=== PATIENT | female | born 1975 | race Caucasian/White ===

== ENCOUNTER → 2017-11-14 08:34 | Outpatient (CLI) | payer BC, SELFPAY ==
[2017-11-14 10:34] LABS: Basophils % 0.5 % (0.1-2.0); Eosinophils # 0.2 K/mm3 (0.0-0.4); Eosinophils % 3.5 % (0.1-12.0); Hematocrit 44.2 % (37.0-47.0); Hemoglobin 13.8 g/dL (12.2-16.2); Lymphocytes # 1.5 K/mm3 (0.7-4.5); Lymphocytes % 22.6 K/mm3 (10-50); Mean Corpuscular HGB Conc 31.3 g/dL (31.8-35.4); Mean Corpuscular Hemoglobin 29.6 pg (27.0-31.2); Mean Corpuscular Volume 94.5 fl (81-99); Mean Platelet Volume 7.5 fl (7.4-10.4); Monocytes # 0.4 K/mm3 (0.1-1.0); Monocytes % 5.6 % (1.7-9.3); Neutrophils # 4.4 K/mm3 (1.8-7.8); Neutrophils % 67.8 % (37.0-80.0); Platelet Count 308 K/mm3 (142-424); Red Blood Count 4.68 M/mm3 (4.20-5.40); Red Cell Distribution Width 13.7 % (11.5-17.5); White Blood Count 6.5 K/mm3 (4.8-10.8)
[2017-11-14 10:39] LABS: Alanine Aminotransferase 22 U/L (12-78); Albumin Level 3.6 gm/dL (3.4-5.0); Alkaline Phosphatase 85 U/L (46-116); Anion Gap 12.5 mEq/L (5-15); Aspartate Amino Transferase 18 U/L (15-37); Bilirubin,Total 0.3 mg/dL (0.2-1.0); Blood Urea Nitrogen 21 mg/dL (7-18); Calcium 9.1 mg/dL (8.5-10.1); Carbon Dioxide 29 mmol/L (21.0-32.0); Chloride 104 mmol/L (98-107); Chol/HDL Ratio 2.5 (1-3.5); Cholesterol 198 mg/dL (140-200); Creatinine,Serum 0.72 mg/dL (0.55-1.02); Estimated Glomerular Filt Rate 89 ml/min (>60); GFR (African American) 108 ML/MIN (>60); Globulin 3.5 gm/dl (1.3-3.2); Glucose 83 mg/dL (74-106); HDL Cholesterol 79 mg/dL (29-89); LDL Cholesterol 106 mg/dL (0-130); Potassium 4.5 mmoL/L (3.5-5.1); Sodium 141 mmol/L (136-145); Total Protein,Serum 7.1 gm/dL (6.4-8.2); Triglycerides 65 mg/dL (30-200); VLDL Cholesterol 13 mg/dL (0-40)
--- NOTE | 2017-11-14 15:10 | MM_ITS ---
MM Dig screening mamm BI w/CAD CAD Screening COMPARISON: None, this is baseline INDICATION: There is no personal or family history of breast cancer. TECHNIQUE: Standard CC and MLO images were obtained. R2 CAD reviewed. FINDINGS: Scattered fibro-glandular densities are seen throughout both breasts and the findings are bilateral and symmetrical. There is no suspicious lesion in either breast and no suspicious microcalcifications. There are small nodes in both axilla. IMPRESSION: Fibrofatty parenchyma no suspicious lesion seen recommend yearly follow-up BI-RADS Category: 1 Negative RECOMMENDED FOLLOW-UP: 1YR - 1 YEAR FOLLOW-UP (A letter has been sent to the patient regarding results of the study.)
[2017-11-15 07:18] LABS: Hep A Ab, IgM Negative (Negative); Hepatitis B Core Antibody IgM Negative (Negative); Hepatitis B Surface Antigen Negative (Negative)
[2017-11-15 13:38] LABS: HSV 2 IgG, Type Spec 2.22 index (0.00-0.90); Hepatitis C Antibody <0.1 s/co ratio (0.0-0.9); Rapid Plasma Reagin Ab Titer Non Reactive (NonRea<1:1)
== END ==
PROVIDERS: Family Provider Pediatrics; PCP Pediatrics; Visit Provider Nurse Practitioner Obstetrics & Gynecology
DX: Z12.31 Encounter for screening mammogram for malignant neoplasm of breast (principal); Z01.419 Encounter for gynecological examination (general) (routine) without abnormal findings; Z72.51 High risk heterosexual behavior
CPT/HCPCS: 36415; 77067; 80053; 80061; 80074; 85025; 86592; 86695; 86790

== ENCOUNTER → 2021-08-30 16:00 | Outpatient (CLI) | payer BC, SELFPAY ==
--- NOTE | 2021-08-30 16:01 | MM_ITS ---
PROCEDURE INFORMATION: Exam: MG Bilateral Screening 3D Mammography Exam date and time: 08/30/2021 4:14 PM Age: 46 years old Clinical indication: Screening mammogram TECHNIQUE: Imaging protocol: Bilateral Screening tomosynthesis and 2D mammography including computer-aided detection (CAD) when performed. COMPARISON: MG SCBI MM Dig screening mamm BI w/CAD 11/14/2017 3:34 PM FINDINGS: MAMMOGRAPHY: Breast composition: There are scattered areas of fibroglandular density. Mass: None. Architectural distortion: No new or suspicious architectural distortion. Calcifications: No new or suspicious calcifications are present Asymmetric density: No new or suspicious asymmetric density is present Skin thickening: None. Axillary adenopathy: None. IMPRESSION: No mammographic evidence of malignancy. Recommend annual screening mammography unless otherwise clinically indicated. ASSESSMENT: BI-RADS category 1: Negative
== END ==
PROVIDERS: PCP Pediatrics; Visit Provider Nurse Practitioner Obstetrics & Gynecology
DX: Z12.31 Encounter for screening mammogram for malignant neoplasm of breast (principal)
CPT/HCPCS: 77063; 77067

== ENCOUNTER 2024-04-21 14:30 | Outpatient (POV) | payer BC, SELFPAY | END 2024-04-21 23:59 | disposition home or self-care (01) | LOC: SC 04-22 06:59 | PROVIDERS: Visit Provider Dermatology | DX: Z00.00 Encounter for general adult medical examination without abnormal findings (principal) ==

== ENCOUNTER 2024-04-29 10:24 | Outpatient (CLI) | payer BC, SELFPAY ==
--- NOTE | 2024-04-29 10:25 | MM_ITS ---
PROCEDURE INFORMATION: Exam: MG Bilateral Screening 3D Mammography Exam date and time: 04/29/2024 10:23 AM Age: 49 years old Clinical indication: Screening examination TECHNIQUE: Imaging protocol: Bilateral Screening tomosynthesis and 2D mammography including computer-aided detection (CAD) when performed. COMPARISON: 1. MG MM DIG SCREENING MAMM BI W/CAD 08/30/2021 4:14 PM 2. MG SCBI MM Dig screening mamm BI w/CAD 11/14/2017 3:34 PM FINDINGS: MAMMOGRAPHY: Breast composition: There are scattered areas of fibroglandular density. Mass: None. Architectural distortion: None. Calcifications: No suspicious calcifications. Asymmetric density: None. Skin thickening: None. Axillary adenopathy: None. IMPRESSION: No mammographic evidence of malignancy. Annual screening is recommended unless otherwise clinically indicated. ASSESSMENT: BI-RADS Category 1: Negative.
== END 2024-04-29 23:59 | disposition home or self-care (01) ==
LOC: RAD 10:25
PROVIDERS: PCP Pediatrics; Visit Provider Nurse Practitioner Obstetrics & Gynecology
DX: Z12.31 Encounter for screening mammogram for malignant neoplasm of breast (principal)
CPT/HCPCS: 77063; 77067

== ENCOUNTER 2025-05-03 15:22 | Outpatient (CLI) | payer BC, SELFPAY ==
--- OUTSIDE RECORDS SUMMARY | 2025-03-09 09:20 | XMS_ITS | Encounter Summary ---
Author Organization [place] [address] Care Team Providers Care Cloud Architect Name Role Phone Mateo Raya MD Primary Care Provider [phone] Reason for Visit * Reason Comments Fall Fell at work on face now having neck and rt. Shoulder pain on 2025 Encounter Details Date Type Department Care Team (Latest Contact Info) Description 03/09/2025 10:20 AM EDT Office Visit SEP Jorge Alberto FINLEY [place] [phone] Mateo Raya MD [address] [facility] [place] [phone] Strain of sternocleidomastoid muscle, initial encounter (Primary Dx); Intertrigo; Concussion without loss of consciousness, initial encounter Social History Tobacco Use Types Packs/Day Years Used Date Smoking Tobacco: Former Cigarettes Passive Smoke Exposure: Never Smokeless Tobacco: Never Tobacco Cessation:Counseling Given: Not Answered Comments:less than 1 per day Alcohol Use Standard Drinks/Week Comments Yes 0 (1 standard drink = 0.6 oz pur e alcohol) one beer nightly PHQ-2 Answer Date Recorded PHQ-2 Total Score 0 12/24/2024 Sexually Active Control Partners Comments Yes OCP Male Comments No Sex and Gender Information Value Date Recorded Sex Assigned at Not on file Legal Sex Female 8:58 PM EDT Gender Identity Not on file Sexual Orientation Not on file documented as of this encounter Last Filed Vital Signs Vital Sign Reading Time Taken Comments Blood Pressure 138/88 03/09/2025 10:26 AM EDT Pulse 82 03/09/2025 10:26 AM EDT Temperature 36.7 C (98 F) 03/09/2025 10:26 AM EDT Respiratory Rate 18 03/09/2025 10:26 AM EDT Oxygen Saturation 99% 03/09/2025 10:26 AM EDT Inhaled Oxygen Concentration - - Weight 93 kg (205 lb) 03/09/2025 10:26 AM EDT Height 162.6 cm (5' 4 ) 03/09/2025 10:26 AM EDT Body Mass Index 35.19 03/09/2025 10:26 AM EDT documented in this encounter Functional Status * Is the person deaf or does he/she have serious difficulty hearing? Answer Date of Assessment Author No 12/24/2023 7:24 AM EDT Eboni Martinez CCMA * Is the person blind or does he/she have serious difficulty seeing even when wearing glasses? Answer Date of Assessment Author No 12/24/2023 7:24 AM EDT Eboni Martinez CCMA * Does this person have serious difficulty walking or climbing stairs? Answer Date of Assessment Author No 12/24/2023 7:24 AM EDT Eboni Martinez CCMA * Does this person have difficulty dressing or bathing? Answer Date of Assessment Author No 12/24/2023 7:24 AM EDT Eboni Martinez CCMA * Because of a physical, mental or emotional condition, does this person have difficulty doing errands alone such as visiting a doctor's office or shopping? Answer Date of Assessment Author No 12/24/2023 7:24 AM EDEboni Pelayo CCMA documented as of this encounter Mental Status * Because of a physical, mental or emotional condition, does this person have serious difficulty concentrating, remembering or making decisions? Answer Entry Date Author No 12/24/2023 7:24 AM EDEboni Pelayo CCMA documented in this encounter Ordered Prescriptions Prescription Sig Dispense Quantity Refills Last Filled Start Date End Date nystatin (MYCOSTATIN) Top PowderIndications: Intertrigo Apply topically 3 times daily for 14 days. 15 g 2 03/09/2025 nystatin (MYCOSTATIN) Top PowderIndications: Intertrigo Apply topically 3 times daily for 14 days. 15 g 2 03/09/2025 documented in this encounter Progress Notes * Mateo Raya MD - 03/09/2025 10:20 AM EDT Assessment & Plan 1. Right shoulder pain:/SCM muscle tension/strain - The patient's symptoms suggest a muscular injury rather than an internal shoulder injury, as evidenced by the absence of pain over the shoulder joint and the ability to perform certain movements without difficulty. - She was advised to continue with range of motion exercises, gentle stretches, and apply heat to the affected area. 2. Possible low-grade concussion: - Her symptoms, including difficulty focusing, mild headaches, and sleep disturbances, are consistent with a low-grade concussion. - She was advised to avoid activities that could result in head injury and to seek immediate medical attention if her symptoms worsen or if she experiences any new symptoms such as severe headaches, vomiting, or confusion. 3. Yeast infection under her arm: - She was advised to continue using nystatin powder for treatment. - A prescription for nystatin powder was provided. Assessment & Plan Intertrigo Orders: nystatin (MYCOSTATIN) Top Powder; Apply topically 3 times daily for 14 days. Strain of sternocleidomastoid muscle, initial encounter Concussion without loss of consciousness, initial encounter No follow-ups on file. Subjective Gricel Cardona is a 50 y.o. female Chief Complaint Patient presents with Fall Fell at work on face now having neck and rt. Shoulder pain on 2025 History of Present Illness The patient is a 50-year-old female who presents for evaluation of right shoulder pain, possible concussion, and yeast infection under her arm. She experienced a fall on her birthday, landing on her right shoulder. The incident resulted in soreness, particularly when tucking her shoulder in. She also reported a sensation of popping in her shoulder. She was unable to move for several days following the fall but has since regained some mobility. She does not experience any pain in the front direction and believes the discomfort is muscularin nature. She has been managing the pain with ibuprofen 600 to 800 mg and acetaminophen. A friend suggested Celebrex, but she has not yet taken it. She took time off work due to the pain and is uncertain about returning. Additionally, she reported a constant headache located behind her eyes, which is a new symptom. Shedid not lose consciousness during the fall but suspects she may have sustained a mild concussion asshe had difficulty remembering things immediately after the incident. Her memory has since improved. She does not experience severe headaches or double vision but noted that her left eye seems to be more out of focus than usual. She also developed a yeast infection under her arm, which she attributes to the lack of movement post-fall. She has been treating the infection with nystatin powder from 2020. Review of Systems Constitutional: Negative. Negative for activity change, fatigue, fever and unexpected weight change. HENT: Negative. Negative for trouble swallowing. Eyes: Negative. Negative for photophobia, pain, discharge, itching and visual disturbance. Respiratory: Negative. Negative for cough, chest tightness, shortness of breath and wheezing. Cardiovascular: Negative. Negative for chest pain, palpitations and leg swelling. Gastrointestinal: Negative. Negative for abdominal distention, abdominal pain, blood in stool, constipation and diarrhea. Musculoskeletal: Negative. Negative for arthralgias, back pain, gait problem, joint swelling, myalgias, neck pain and neck stiffness. Skin: Negative. Negative for color change, pallor, rash and wound. Neurological: Negative. Negative for dizziness and headaches. Hematological: Negative for adenopathy. Psychiatric/Behavioral: Negative. Negative for confusion, sleep disturbance and suicidal ideas. Thepatient is not nervous/anxious. Objective Blood pressure (!) 138/88, pulse 82, temperature 98 ??F (36.7 ??C), temperature source Temporal, resp. rate 18, height 5' 4 (1.626 m), weight 205 lb (93 kg), SpO2 99%. Body mass index is 35.19 kg/m??. Physical Exam Musculoskeletal: Right shoulder examined, no pain over the shoulder joint, full range of motion. Skin: Yeast infection noted under the arm. Physical Exam Vitals reviewed. Constitutional: General: She is not in acute distress. Appearance: She is well-developed. She is not diaphoretic. HENT: Head: Normocephalic and atraumatic. Right Ear: External ear normal. Left Ear: External ear normal. Mouth/Throat: Pharynx: No oropharyngeal exudate. Eyes: General: No scleral icterus. Right eye: No discharge. Left eye: No discharge. Conjunctiva/sclera: Conjunctivae normal. Pupils: Pupils are equal, round, and reactive to light. Neck: Thyroid: No thyromegaly. Cardiovascular: Rate and Rhythm: Normal rate and regular rhythm. Heart sounds: Normal heart sounds. No murmur heard. No gallop. Pulmonary: Effort: Pulmonary effort is normal. No respiratory distress. Breath sounds: Normal breath sounds. No wheezing or rales. Chest: Chest wall: No tenderness. Abdominal: General: Bowel sounds are normal. Palpations: Abdomen is soft. There is no mass. Tenderness: There is no abdominal tenderness. There is no guarding or rebound. Musculoskeletal: General: No tenderness. Normal range of motion. Cervical back: Normal range of motion and neck supple. Lymphadenopathy: Cervical: No cervical adenopathy. Skin: General: Skin is warm and dry. Neurological: Mental Status: She is alert and oriented to person, place, and time. Results The provider educated the patient (or legal quality assurance representative) on the use of the ambient listening artificial intelligence tool, [employer]. They were informed that this AI tool processes the conversation to generate a clinical note with the expected benefit of improved accuracy while achieving an improved encounter experience for the patient and provider.?The provider explained that the medical information captured by the AI tool including, but not limited to, diagnoses and treatment plan would be protected in accordance with applicable privacy laws and that all diagnoses and treatment decisions would be made by the provider. The provider explained that the note generated will be reviewed bythe provider for accuracy to minimize potential errors.? The patient was given an opportunity to ask questions and opt out of proceeding with the use of the AI tool. After being informed of such information, the patient (or legal quality assurance representative), and each individual in attendance with the patient, verbally consented to the use of the AI tool. documented in this encounter Plan of Treatment Not on file documented as of this encounter Goals Goal Patient Goal Type Associated Problems Recent Progress Patient-Stated? Author Eat better, exercise, reach an ideal body weight General No Mateo Raya MD Stay Tobacco Free Lifestyle No Mateo Raya MD documented as of this encounter Visit Diagnoses Diagnosis Strain of sternocleidomastoid muscle, initial encounter- Primary Intertrigo Other specified erythematous condition Concussion without loss of consciousness, initial encounter documented in this encounter Discontinued Medications Medication Sig Discontinue Reason Start Date End Da te nystatin (MYCOSTATIN) Top PowderIndications:Inter rahul Apply topically 3 times daily for 14 days. Reorder 03/09/2025 03/09/2025 documented as of this encounter Care Teams Cloud Architect Relationship Specialty Start Date End Date Mateo Raya MD [address] [place], [place] [id number] PCP - General Family Medicine 04/23/11 documented as of this encounter
--- OUTSIDE RECORDS SUMMARY | 2025-05-03 15:25 | XMS_ITS | Clinical Summary ---
Author Organization [facility] Address [address] 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 Overview (01/08/2018): ASCUS + HPV Colposcopy 01/06/18 Resolved Problems Problem Noted Date Diagnosed Date Resolved Date Muscle strain 09/04/2011 09/04/2016 Low back pain 08/30/2011 09/04/2016 Pelvic pain in female 08/30/20112016 Encounters Date Type Department Care Team Description 03/09/2025 10:20 AM EDT Office Visit SEP Jorge Alberto FINLEY [address] [place] [phone] Mateo Raya MD Strain of sternocleidomastoid muscle, initial encounter (Primary Dx); Intertrigo; Concussion without loss of consciousness, initial encounter 03/05/2025 Telephone SEP Jorge Alberto FINLEY [address] [place] [phone] Mateo Raya MD Appointment Needed (Workers comp f.u needed- asking to be worked in with Dr. Mateo Raya ) from Last 3 Months Immunizations Immunization Administration Dates Next Due Hepatitis A, Adult 10/16/2018,03/27/2018 Influenza Vaccine Quadrivalent PF 2021,03/28/2021,03/28/2020,2017 Influenza, Injectable, MDCK, PF, Quadrivalent 03/16/2019 Td (Adult), Absorbed 09/30/2002 Surgical History Surgery Date Site/Laterality Comments APPENDECTOMY 2005 not ruptured, laparoscopy TONSILLECTOMY 1983 TUBAL LIGATION Family History Medical History Relation Name Comments Heart Disease Father heart issues Arthritis Mother High Cholesterol Mother Hypertension Mother Rheum Arthritis Mother Relation Name Status Comments Brother 1 Alive Brother 2 Alive Father Alive Mother Alive Social History Tobacco Use Types Packs/Day Years [...] on file Sexual Orientation Not on file Obstetrics History Para Term AB IAB SAB Ectopic Multiple Livin g Live Births 4 4 2 2 Date Outcome GA Total Labor Labor/2nd/3rd Weight Sex Type Anes PTL Radha A1 A5 Name Clin Para Vag-Spo nt Para Vag-Spo nt Term Term Last Filed Vital Signs Vital Sign Reading [...] Mass Index 35.19 03/09/2025 10:26 AM EDT Plan of Treatment Health Maintenance Due Date Last Done Comments Hepatitis B Vaccine (1 of 3 - 19+ 3-dose series) 1995 DTaP/TDaP/Td (1 - Tdap) 10/01/2002 09/30/2002 HPV/Pap Cotest 2006 Breast Cancer Screening 2016 Cologuard 2021 FIT 2021 Sigmoidoscopy 2021 Virtual Colonography 2021 Cervical Cancer Screening 01/06/2022 Pap Smear 01/06/2022 01/06/2019, 07/05, 03/26/2012, Additional history exists COVID-19 Vaccine ( season) 2025 06/01/2021, 07/22/2020, 06/22/2020 Influenza Vaccine (#1) 2025 , 03/28/2021, 03/28/2020, Additional history exists Annual Wellness Exam 12/24/2025 12/24/2024 Colon Cancer Screening 01/06/2026 Colonoscopy 01/06/2026 01/06/2019 Meningococcal B Vaccine Aged Out No l onger eligible based on patient's age to complete this topic Pneumococcal Vaccine 0-49 Aged Out No longer eligible based on patient's age to complete this topic Goals Goal Patient Goal Type Associated Problems Recent Progress Patient-Stated? Author Eat better, exercise, reach an ideal body weight General No Mateo Raya MD Stay Tobacco Free Lifestyle No Mateo Raya MD Procedures Procedure Name Priority Date/Time Associated Diagnosis Comments HEALTH AID CYTOLOGY REPORT Routine 07/26/2014 4 :00 AM EST from Last 3 Months or Most Recently Relevant to Health Maintenance Results * HEALTH AID CYTOLOGY REPORT (07/26/2014 4:00 AM EST) Technology Professional Cytology Report PATIENT NAME:DK CARDONA Technology Professional Cytology Report Accession Number Collected Date/Time Received Date/Time [id number] 07/26/14 04:00 EST 07/27/14 07:21 EST GY Specimen Source Specimen Vag/Cerv/Endocx?: Cerv/Endocerv Statement of Adequacy Satisfactory for Evaluation. Transformation Zone Present. Diagnosis NEGATIVE FOR INTRAEPITHELIAL LESION OR MALIGNANCY. Comment Note: Concurrent High-Risk HPV DNA testing is NEGATIVE. The Pap Smear is a screening test that aids in the detection of cervical cancer and cancer precursors. Both false positive and false negative results can occur. The test should be used at regular intervals, and positive results should be confirmed before definitive therapy. Processed using the EVERYWAREPrep District Supervisor automated cytology screening device (Front Flip). Food Technologist: LETHA 07/28/2014 Completed by: SARAN Gooden (Electronically signed by) 07/28/2014 [facility] 07/26/2014 4:00 AM EST Jina Tse MD PATHOLOGY ORDERABLES Isabel santamaria Result Performing Organization Address City/State/[facility] Co de Phone Number [facility] [address] [place] [address] from Last 3 Months or Most Recently Relevant to Health Maintenance Insurance BERNIE PPO BERNIE PPO [facility] PPO Care Teams Supervisor [employer] Plant Relationship Specialty Start Date End Date Mateo Raya MD [address] [place], [place] [phone] PCP - General Family Medicine 04/23/11
--- OUTSIDE RECORDS SUMMARY | 2025-05-03 15:25 | XMS_ITS | Encounter Summary ---
Author Organization [place] [address] Care Team Providers Care Roll Hauler Name Role Phone Mateo Raya MD Primary Care Provider [phone] Reason for Visit * Reason Onset Date Comments Appointment Needed 03/05/2025 Workers comp f.u needed- asking to be worked in with Dr. Mateo Raya Encounter Details Date Type Department Care Team (Late st Contact Info) Description 03/05/2025 Telephone SUJIT FINLEY [address] [place], [place] [phone] Mateo Raya MD [address] [facility] [place] [phone] Appointment Needed (Workers comp f.u needed- asking to be worked in with Dr. Mateo Raya ) Social History Tobacco Use Types Packs/Day Years Used Date Smoking Tobacco: Former Cigarettes Passive Smoke Exposure: Never Smokeless Tobacco: Never Comments:less than 1 per day Alcohol Use [...] on file documented as of this encounter Functional Status * Is the [...] 12/24/2023 7:24 AM EDT Eboni Martinez CCMA documented as of this encounter Mental Status * Because of a physical, mental or emotional condition, does this person have serious difficulty concentrating, remembering or making decisions? Answer Entry Date Author No 12/24/2023 7:24 AM EDT Eboni Martinez CCMA documented in this encounter Miscellaneous Notes * Telephone Encounter - Art Marrufo MA - 03/05/2025 11:19 AM EDT Appt made * Telephone Encounter - Crystal Beck - 03/05/2025 10:57 AM EDT Select the most appropriate reason for this telephone message: Appointment Needed Who is Calling: Patient Return Method of Communication: Phone Call Provider Preference: PCP Only Type of Appt Needed: Office Visit Detailed Reason for Appt: fall at work on 03/02- hit head and tweaked right shoulder & neck / nobal / this will be through workers comp - pt to bring workers comp info Is the caller rescheduling an existing appointment: No Requested Timeframe: Other FANNIE- when available Reason Scheduling Assistance is Needed: -other 1st visit with him right now is 03/18- pt asking to be seen sooner for this. Additional Information: please advise if pt can be worked in with PCP for this. documented in this encounter Plan of Treatment Not on file documented as of this encounter Goals Goal Patient Goal Type Associated Problems Recent Progress Patient-Stated? Author Eat better, exercise, reach an ideal body weight General No Mateo Raya MD Stay Tobacco Free Lifestyle No Mateo Raya MD documented as of this encounter Visit Diagnoses Not on filedocumented in this encounter Care Teams Roll Hauler Relationship Specialty Start Date End Date Mateo Raya MD [address] [place] [phone] PCP - General Family Medicine 04/23/11 documented as of this encounter
--- OUTSIDE RECORDS SUMMARY | 2025-05-03 15:25 | XMS_ITS | Clinical Summary ---
Author Organization [facility] Address [address] [place] [address] Care Team Providers Care Manager Unix Name Role Phone Unknown, Attending Provider Primary Care Provide r Unavailable Source Comments This information has been disclosed to you from confidential records protectedfrom disclosure by state law. You shall make no further disclosure of thisinformation without the specific, written, and informed release of theindividual to whom it pertains, or as otherwise permitted by law. A generalauthorization for the release of medical or other information is not sufficientfor the purposes of therelease of HIV test results or diagnoses. [id number] Social History Tobacco Use Types Packs/Day Years Used Date Smoking Tobacco: Never Assessed Comments Unknown Sex and Gender Information Value Date Recorded Sex Assigned at Not on file Legal Sex Female 10:02 PM EST Gender Identity Not on file Sexual Orientation Not on file Plan of Treatment Not on file Insurance * Guarantor: Cristino Cardona Account Type Relation to Patient Date of Phone Billing Address Transplant Transplant Recipient [address] Care Teams Manager Unix Relationship Specialty Start Date End Date Unknown, Attending Provider PCP - General 10/03/18
--- NOTE | 2025-05-03 15:30 | MM_ITS ---
PROCEDURE INFORMATION: Exam: MG Bilateral Screening 3D Mammography Exam date and time: 05/03/2025 3:27 PM Age: 50 years old Clinical indication: Screening mammogram TECHNIQUE: Imaging protocol: Bilateral Screening tomosynthesis and 2D mammography including computer-aided detection (CAD) when performed. COMPARISON: No relevant prior studies available. FINDINGS: MAMMOGRAPHY: Breast composition: There are scattered areas of fibroglandular density. Mass: None. Architectural distortion: No new or suspicious architectural distortion. Calcifications: No new or suspicious calcifications are present Asymmetric density: No new or suspicious asymmetric density is present Skin thickening: None. Axillary adenopathy: None. IMPRESSION: No mammographic evidence of malignancy. Recommend annual screening mammography unless otherwise clinically indicated. ASSESSMENT: BI-RADS category 1: Negative.
== END 2025-05-03 23:59 | disposition home or self-care (01) ==
LOC: RAD 15:22
PROVIDERS: PCP Pediatrics; Visit Provider Nurse Practitioner Obstetrics & Gynecology
DX: Z12.31 Encounter for screening mammogram for malignant neoplasm of breast (principal); R92.323 Mammographic fibroglandular density, bilateral breasts
CPT/HCPCS: 77063; 77067